=== PATIENT | female | born 1955 | race Caucasian/White ===

== ENCOUNTER 2016-09-09 10:48 | Day surgery (SDC) | payer MEDICARE, OTHER ==
[~2016-09-09] VITALS: Ht 154.9 cm; Wt 62.3 kg
[~2016-09-09 10:48] MED LIST: AMLODIPINE BESYL5 MG PO; BRINTELLIX10 MG PO; DIAZEPAM2 MG PO; IBUPROFEN800 MG PO; LISINOPRIL-HCT1 EAC1 PO; METOPROLOL TART25 MG PO; NORCO 5-325 TA1 EACH PO; TIZANIDINE HCL4 MG PO; TRAZODONE HCL50 MG PO; ZIPRASIDONE HCL60 MG PO
--- NOTE | 2016-09-09 12:58 | NUR ---
[facility]16 [facility]8 [facility]
--- NOTE | 2016-09-16 16:44 | OR ---
[facility] [address] [place] [address] Signed DATE OF PROCEDURE: September 09, 2016. PROCEDURE: Left posterior iliac crest bone marrow biopsy and aspirate under conscious sedation. After explaining the risks, benefits, and alternatives to bone marrow biopsy and aspiration under conscious sedation for evaluation of pancytopenia and obtaining informed written consent, the patient was brought to the endoscopy suite, where a time-out was taken and the patient and procedure were correctly identified. She was placed in the prone position. Conscious sedation was obtained with 100 mcg of intravenous fentanyl and 5 mg of intravenous midazolam. The left posterior iliac crest was prepped and draped in the usual sterile manner. Local anesthesia over the left posterior iliac crest was obtained with 2 mL of 1% lidocaine and the left posterior iliac crest bone marrow biopsy and aspirate were obtained without adverse effects. 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
== END 2016-09-09 13:24 | disposition home or self-care (01) ==
LOC: DS 10:48
PROVIDERS: Specialist
PROC: 07DR3ZX Extraction of Iliac Bone Marrow, Percutaneous Approach, Diagnostic (ICD-10-PCS; principal; 2016-09-09 12:00)
DX: D61.818 Other pancytopenia (principal); I10 Essential (primary) hypertension; F32.9 Major depressive disorder, single episode, unspecified; M19.90 Unspecified osteoarthritis, unspecified site; G89.29 Other chronic pain; M54.9 Dorsalgia, unspecified; Z90.89 Acquired absence of other organs; Z98.890 Other specified postprocedural states
CPT/HCPCS: 85025; 99152; 99153; J2250; J3010; J7040

== ENCOUNTER 2018-03-16 11:33 | Emergency (ER) | payer MEDICARE, OTHER ==
[~2018-03-16] VITALS: Ht 154.9 cm; Wt 62.8 kg
[~2018-03-16 11:33] MED LIST changes: +COMBIVENT RESPIM4 GM INH; +CRESTOR20 MG PO; +DULOXETINE HCL60 MG PO; +TOPROL XL50 MG PO
[2018-03-16] MEDS ORDERED: CLOPIDOGREL75 MG PO (11:57)
[2018-03-16] MEDS ORDERED: PAROXETINE HCL10 MG PO (11:58)
[2018-03-16] MEDS ORDERED: ANUSOL-HC25 MG PR (14:21)
[2018-03-16] MEDS ORDERED: NORCO 5-325 TA1 EACH PO (14:21)
== END 2018-03-16 14:55 | disposition home or self-care (01) ==
LOC: ED 11:33
DX: K74.60 Unspecified cirrhosis of liver (principal); D64.9 Anemia, unspecified; K64.4 Residual hemorrhoidal skin tags; F32.9 Major depressive disorder, single episode, unspecified; I10 Essential (primary) hypertension; F17.210 Nicotine dependence, cigarettes, uncomplicated; K72.90 Hepatic failure, unspecified without coma; Z79.899 Other long term (current) drug therapy; Z71.6 Tobacco abuse counseling
CPT/HCPCS: 74177; 80053; 81001; 82150; 83690; 85025; 85610; 85730; 99284-25; 99406; Q9967

== ENCOUNTER 2019-11-07 21:23 | Inpatient (IN) | payer MEDICARE, OTHER | END 2019-11-09 12:50 | disposition home or self-care (01) | DRG 378 | LOC: ED 21:23 → CCU 23:23 → MS 11-08 18:03 | PROVIDERS: ADMIT Student in an Organized Health Care Education/Training Program | PROC: 30233N1 Transfusion of Nonautologous Red Blood Cells into Peripheral Vein, Percutaneous Approach (ICD-10-PCS; 2019-11-07) | PROC: 0W3P8ZZ Control Bleeding in Gastrointestinal Tract, Via Natural or Artificial Opening Endoscopic (ICD-10-PCS; principal; 2019-11-08) | DX: K31.811 Angiodysplasia of stomach and duodenum with bleeding (principal); D62 Acute posthemorrhagic anemia; D61.818 Other pancytopenia; K29.51 Unspecified chronic gastritis with bleeding; K74.60 Unspecified cirrhosis of liver; B19.20 Unspecified viral hepatitis C without hepatic coma; F32.9 Major depressive disorder, single episode, unspecified; M54.9 Dorsalgia, unspecified; I10 Essential (primary) hypertension; F17.210 Nicotine dependence, cigarettes, uncomplicated; J44.9 Chronic obstructive pulmonary disease, unspecified; R16.1 Splenomegaly, not elsewhere classified; Z79.899 Other long term (current) drug therapy; Z79.891 Long term (current) use of opiate analgesic; Z79.52 Long term (current) use of systemic steroids; Z79.02 Long term (current) use of antithrombotics/antiplatelets ==

== ENCOUNTER 2023-10-02 10:05 | Emergency (ER) | payer MEDICARE, OTHER ==
[~2023-10-02] VITALS: Ht 154.9 cm; Wt 60.0 kg
[~2023-10-02 10:05] MED LIST changes: +ANUSOL-HC25 MG PR; +AZITHROMYCIN250 MG PO; +CILOSTAZOL50 MG PO; +CLOPIDOGREL75 MG PO; +IRON325 M1 PO; +NICOTINE1 EAC2 TOP; +PANTOPRAZOLE SO40 MG PO; +PAROXETINE HCL10 MG PO; +PREDNISONE20 MG PO; +SUCRALFATE1 GM PO; +VITAMIN C250 MG PO
[2023-10-02] MEDS ORDERED: ROSUVASTATIN CA20 MG PO (10:28)
[2023-10-02] MEDS ORDERED: ACETAMINOPHEN 500 MG TAB PO ONE (10:30)
[2023-10-02 12:15] VITALS: BP 147/76
== END 2023-10-02 12:15 | disposition home or self-care (01) ==
LOC: ED 10:05
DX: S93.401A Sprain of unspecified ligament of right ankle, initial encounter (principal); W18.09XA Striking against other object with subsequent fall, initial encounter; F32.A Depression, unspecified; K72.90 Hepatic failure, unspecified without coma; F17.200 Nicotine dependence, unspecified, uncomplicated; Z79.899 Other long term (current) drug therapy
CPT/HCPCS: 73610; 99283; A9270